=== PATIENT | female | born 1980 | race Caucasian/White ===

== ENCOUNTER 2020-05-04 21:40 | Emergency (ER) | payer SELFPAY ==
[2020-05-05 00:45] LABS: APPEARANCE,URINE SLIGHTLY-CLOUDY; BILIRUBIN,URINE NEGATIVE (NEGATIVE); COLOR,URINE YELLOW; GLUCOSE, URINE NEGATIVE (NEGATIVE); KETONES,URINE NEGATIVE (NEGATIVE); LEUKOCYTE ESTERASE,URINE NEGATIVE (NEGATIVE); NITRITE,URINE NEGATIVE (NEGATIVE); PROTEIN,URINE NEGATIVE (NEGATIVE); UROBILINOGEN,URINE NEGATIVE mg/dL (<2.0)
[2020-05-05 00:47] LABS: ABSOLUTE EOSINOPHILS # (AUTO) 0.2 10^3/uL (0.0-0.6); ABSOLUTE LYMPHOCYTES (AUTO) 2.7 10^3/uL (0.5-4.7); ABSOLUTE MONOCYTES (AUTO) 0.9 10^3/uL (0.1-1.4); BASOPHILS % (AUTO) 0.4 % (0-2); EOSINOPHILS % (AUTO) 1.6 % (0-6); HEMOGLOBIN 13.9 g/dL (12.0-15.5); LYMPHOCYTES % (AUTO) 24.6 % (13-45); MEAN CORPUSCULAR HEMOGLOBIN 27.2 pg (27.0-33.4); MEAN CORPUSCULAR HGB CONC 33.9 g/dL (32.0-36.0); MEAN CORPUSCULAR VOLUME 80 fl (80-97); MONOCYTES % (AUTO) 8.2 % (3-13); PLATELET COUNT 327 10^3/uL (150-450); RED CELL DISTRIBUTION WIDTH 14.6 % (11.5-14.0); SEGMENTED NEUTROPHILS % (AUTO) 65.2 % (42-78); TOTAL CELLS COUNTED % (AUTO) 100 %; WHITE BLOOD COUNT 10.8 10^3/uL (4.0-10.5)
[2020-05-05 01:02] LABS: URINE AMPHETAMINES SCREEN NEGATIVE; URINE BARBITURATES SCREEN NEGATIVE; URINE BENZODIAZEPINES SCREEN NEGATIVE; URINE COCAINE SCREEN NEGATIVE; URINE MARIJUANA (THC) SCREEN NEGATIVE; URINE METHADONE SCREEN NEGATIVE; URINE PHENCYCLIDINE SCREEN NEGATIVE
[2020-05-05 01:05] LABS: ACETAMINOPHEN < 10 ug/mL (10-30); ALBUMIN 4.3 g/dL (3.5-5.0); ALCOHOL < 10 mg/dL (NONE DETECTED); ALKALINE PHOSPHATASE 108 U/L (38-126); ANION GAP 7 (5-19); ASPARTATE AMINO TRANSFERASE 39 U/L (14-36); BILIRUBIN,DIRECT 0.3 mg/dL (0.0-0.4); BILIRUBIN,TOTAL 0.6 mg/dL (0.2-1.3); BLOOD UREA NITROGEN 17 mg/dL (7-20); CALCIUM 9.7 mg/dL (8.4-10.2); CARBON DIOXIDE 28 mmol/L (22-30); CHLORIDE 104 mmol/L (98-107); GLUCOSE 120 mg/dL (75-110); POTASSIUM 3.7 mmol/L (3.6-5.0); SALICYLATE < 1.0 mg/dL (2.0-20.0); TOTAL PROTEIN 7.6 g/dL (6.3-8.2)
[2020-05-05] MEDS: HALOPERIDOL 2 MG TABLET PO SCH ×4 (01:13→18:57)
--- NOTE | 2020-05-05 04:38 | ER Document Report ---
ED General - General TRAVEL OUTSIDE OF THE [place] IN LAST 30 DAYS: No <TONIA GOMEZOMARA Magaly - Last Filed: 05/06/20 06:30> <MIAH DE LA CRUZ - Last Filed: 05/06/20 17:34> <SHAYKADEEM Riddhi - Last Filed: 05/06/20 18:15> - General Chief Complaint: Psych Problem Stated Complaint: IVC Primary Care Provider: [facility] [Outside] - 05/07/20 8:00 am (Walk ins are -Fridays 8:00A-12:00PM/Noon. Can walk in first thing tomorrow (05/07/2020) morning.) [facility] [Outside] - Follow up as needed [facility] [Outside] - Follow up as needed Notes: 39-year-old female no significant past medical history presents with homicidal ideation. Patient was here accompanying her daughter who has been having psychiatric issues for the past 3 years and she told RENETTA Mahajan repeatedly that she wanted to kill her daughter. Patient during my conversation says "I do not need to be here, I am not the one who is going to hurt myself" her many other children"but does not deny homicidal ideation regarding her daughter who is at the center of this complaint. Patient says she had her mother warehouse picker daughter in order to avoid hurting her. Patient denies any suicidal ideation, personal psych history, medical complaints (GOMEZMANUEL Magaly) - Related Data Allergies/Adverse Reactions: No Known Allergies Allergy (Unverified 11/10/10 05:20) Past Medical History - General Information source: Patient, Emergency Med Personnel, [facility] Records - Social History Smoking Status: Unknown if Ever Smoked Family History: Reviewed & Not Pertinent - Past Medical History Cardiac Medical History: Pulmonary Medical History: Neurological Medical History: GI Medical History: Musculoskeletal Medical History: Infectious Medical History: Past Surgical History: - Immunizations Immunizations up to date: Yes Hx Diphtheria, Pertussis, Tetanus Vaccination: Yes <MANUEL GOMEZ - Last Filed: 05/06/20 06:30> Physical Exam <MANUEL GOMEZ - Last Filed: 05/06/20 06:30> - Vital signs Vitals: Temp Pulse Resp BP Pulse Ox 98.5 F 100 16 144/103 H 99 05/04/20 22:34 05/04/20 22:34 05/04/20 22:34 05/04/20 22:34 05/04/20 22:34 - Notes Notes: PHYSICAL EXAMINATION: GENERAL: Well-appearing, well-nourished and in no acute distress. HEAD: Atraumatic, normocephalic. EYES: Pupils equal round and appropriate constriction, sclera anicteric, conjunctiva are normal. ENT: nares patent, moist mucous membranes. NECK: Normal range of motion, supple without lymphadenopathy LUNGS: Normal respiratory rate and effort, speaking in full sentences HEART: Regular rate, no JVD, no lower extremity edema EXTREMITIES: Normal range of motion, no pitting or edema. No cyanosis. NEUROLOGICAL: Awake, alert, conversing appropriately, moves all extremities spontaneously. PSYCH: Normal speech, poor insight into reasons why she has been placed on IVC, normal affect, no SI SKIN: Warm, Dry, normal turgor, no rashes or lesions noted. (MANUEL GMOEZ) Course - Laboratory Result Diagrams: 05/04/20 22:57 05/04/20 22:57 <MANUEL GOMEZ - Last Filed: 05/06/20 06:30> - Laboratory Result Diagrams: 05/04/20 22:57 05/04/20 22:57 <MIAH DE LA CRUZ - Last Filed: 05/06/20 17:34> - Laboratory Result Diagrams: 05/04/20 22:57 05/04/20 22:57 <KADEEM DAY - Last Filed: 05/06/20 18:15> - Re-evaluation Re-evalutation: 05/05/20 04:42 Patient repeatedly threatening to kill her teenage daughter who has been having psychiatric difficulties. Patient during my evaluation continued to expressing thoughts. Patient has no medical complaints and no other psychiatric complaints. Patient placed on IVC by Mohinder from psych and toxicology was provider who patient initially communicated threats to. Patient on ICU awaiting psych eval during daytime. [facility] to turn over CPS notification 2 days PCC. Will turn over patient to Fatou Mahajan pending psych eval. (MANUEL GOMEZ) 05/06/20 18:14 Patient has been evaluated by Department of Dental Tech and a plan is in place for the patient and her children at this time. Patient is in full agreement with this plan she is eating in the room she is in no distress. She denies homicidal or suicidal ideation at this time. Psychiatric team is in agreement for discharge for the patient with plan in place. (KADEEM DAY) - Vital Signs Vital signs: Temp Pulse Resp BP Pulse Ox 98.3 F 86 18 135/83 H 97 05/06/20 15:49 05/06/20 15:49 05/06/20 15:49 05/06/20 15:49 05/06/20 15:49 - Laboratory Laboratory results interpreted by me: 05/04/20 05/04/20 22:57 22:57 WBC 10.8 H RDW 14.6 H Glucose 120 H AST 39 H ALT 42 H Salicylates < 1.0 L Acetaminophen < 10 L - EKG Interpretation by Me Additional EKG results interpreted by me: 05/05/20 04:44 Heart rate 80, sinus rhythm, erroneously read as ventricular paced rhythm, no significant ST elevations or depressions, LVH (MANUEL GOMEZ) Discharge <MANUEL GOMEZ - Last Filed: 05/06/20 06:30> <MIAH DE LA CRUZ - Last Filed: 05/06/20 17:34> <KADEEM DAY - Last Filed: 05/06/20 18:15> - Discharge Clinical Impression: Homicidal ideation, Labile mood Condition: Stable Disposition: HOME, SELF-CARE Additional Instructions: You have been evaluated by both medical and behavioral health teams for pascale icidal ideation and mood lability. You have been deemed appropriate for discharge. While in the emergency department you received the following services: Medical screening and assessment, nursing services, dietary services, pharmacological services, one-on-one counseling and/or psychotherapy, enviro nyental services, and continuous observation by a patient registered safety engineer. You are recommended to follow up with an outpatient mental health provider of your choice for at least therapy. DEPRESSION: Your evaluation reveals that you have mental depression. While symptoms may be vague, they often include disturbance of sleep, fatigue, loss of appetite, and general loss of interest in life. While depression may be a side effect of drugs, or a reaction to a major change in your life, many cases have no known cause. If depression is acute, and related to a major loss in your life, you can expect it to clear completely with time. If you have been depressed a long time, are prone to repeated bouts of depression or low mood, or have been thinking of suicide, get help. Depression can be treated with anti-depressant medication and counselling. Long-term depression will often take a few weeks to clear, even with appropriate medication. Follow-up care is important. HOMICIDAL IDEATION: Homicidal ideation is a common medical term for thoughts about homicide, whi ch may be as detailed as a formulated plan, without the homicidal act itself. Although most people who undergo homicidal ideation do not commit homicide, some go on to make homicide attempts. The range of homicidal ideation varies greatly from fleeting to detailed planning, role playing, and unsuccessful attempts. While thoughts about homicide can be common, most people do not carry out serious actions to commit homicide. Based upon your evaluation and discussion with you, we do not believe you are currently at risk to act upon your thoughts of homicide. You have agreed to return to the Emergency Department, at any time, if you feel inclined to act upon your homicidal thoughts. FOLLOW-UP CARE: You are recommended to initiate outpatient mental health services from a local provider such as [facility] (walk ins 8:00AM- 12:00PM/Noon) and can do first thing tomorrow (05/07/2020) morning. You have also been provided both local mobile crisis numbers. Department of Dental Tech also involved and part of plan of care. [facility] are [facility] and recommendations. If you experience worsening or a significant change in your symptoms notify your physician immediately, utilize mobile crisis or return to the Emergency Department at any time for re- evaluation. Referrals: [facility] [Outside] - Follow up as needed [facility] [Outside] - Follow up as needed [facility] [Outside] - 05/07/20 8:00 am (Walk ins are 8:00A-12:00PM/Noon. Can walk in first thing tomorrow (05/07/2020) morning.)
[2020-05-05] MEDS: BENZTROPINE MESYLATE 1 MG TABLET PO SCH (08:06)
--- NOTE | 2020-05-05 15:11 | ER Document Report ---
Doctor's Note Notes: 05/05/20 15:10 Patient is resting in the room in no distress, has been ambulatory. Awaiting psychiatric evaluation today for further recommendations
--- NOTE | 2020-05-05 19:08 | EKG REPORT ---
SEVERITY:- ABNORMAL ECG - VENTRICULAR-PACED COMPLEXES LEFT VENTRICULAR HYPERTROPHY : Confirmed by: Batsheva Khan 05-May-2020 19:08:11
--- NOTE | 2020-05-05 23:27 | PSYCHOLOGICAL NOTE ---
Psych Note - Psych Note Date seen by psych provider: 05/04/20 Time seen by psych provider: 20:00 Psych Note: Reason for Consult: Homicidal comments While at [facility] ED for an other matter, patient was noted to make homicidal comments numerous times to both mental health clinician and medical provider. Patient stated she got into an argument with her teenage daughter; it was so bad I called my mother and told her to come roll picker this child now before I kill hercause I will not be going to long term for no one. She reported the teenager was unable to return to my homefor my own mental healthI cant live like thisI shouldn'tt have to live like this with her snip, snip, sniping at magdalenoe has mental health issuesfor my own mental health and the safety of myself and children she cant return to my homeI cant trust myself in not wanting to kill her. Patient was noted to repeatedly make comments about the issue being the teenagers that she does not have a problem ( I dont have any problems, it is her, she has the issues, I am fine without her), the teenager can not return to the home for the mental health of the patient, that she could not continue living like this and that she should have to live with the teenagers behaviors. Patients mood is slightly labile moving swiftly from calm to angry to tearful to overwhelmed. Patient continued to demonstrate extreme stress, inability to problem solve or process recommendations for professionals ie going from provider to provider in an attempt to obtain unneeded treatment for her teenager, inability to identify the cause and effect of her own actions, and inability to discuss future plans for her teenager such as the teenager returning home even if the treatment she wanted was appropriate. At this time, there is significant concern for the patients mental health state and is in need of an evaluation. 24 hour petition for evaluation has been signed and placed in patients chart; evaluation is ongoing. Dr. Garcia was consulted on the care and management of this patient; attending physician is in agreement with recommendations and disposition.
[2020-05-06] MEDS ORDERED: DIPHENHYDRAMINE HCL 50 MG CAPSULE PO ONE (00:09)
[2020-05-06] MEDS: HALOPERIDOL 2 MG TABLET PO SCH ×4 (00:16→17:56)
[2020-05-06] MEDS: BENZTROPINE MESYLATE 1 MG TABLET PO SCH (08:52)
--- NOTE | 2020-05-06 09:58 | PSYCHOLOGICAL NOTE ---
Psych Note - Psych Note Date seen by psych provider: 05/05/20 Time seen by psych provider: 11:20 - Evaluation with patient from [id number]. [facility] DSS/CPS called all morning, took first call at 1316, they came to see patient in ED and then spoke to this clinician after at 1509, then went to the family home to interview the children, and back to discuss safety plan with patient at 1742. Psych Note: Patient is a 39 year old female who presented to the Emergency Department last evening initially for her 17 year old daughter who came in on IVC paperwork. Reportedly professionals had already informed mother patient did not meet Involuntary Commitment criteria but she still pursed it. During that assessment patient said in front of both the medical and behavioral health providers her daughter could not return home or else she would kill her. She made such st atements several times and in the presence of the child. Patient became emotionally labile. She was subsequently put on a 24 Hour Petition for Evaluation. Patient reported "I'm just sleepy" when asked how she was doing. When confronted about homicidal statements towards 17 year old daughter made several times in front of both medical and behavioral health providers patient would not admit and eventually denied she ever made such statements. She identified "I had been trying to get my daughter additional care, she has mental health issues, is on medication, Sunday the school called me and she needs an evaluation before returning back, the counselor that works with my daughter told me to go to the [facility] but once there they said I couldn't Involuntary Commit and gave me a number, then we went to [facility] where they did an Involuntary Commitment and sent my daughter here to the Emergency Department for inpatient placement." She further stated "I had been going all day, since 0900, I was frustrated and exhausted with all the hurdles I felt like I had to go through to get my daughter help." She stated "it was just my passion and a sense of urgency." Patient acknowledged an argument happened last week where she called her mother saying "come get the 17 year old, I am so angry I am going to kill her." Patient further reported "it was a comment which expressed the amount of anger I had, I wasn't meaning it." She denied ever doing anything to hurt any of her children. She stated "this has all been taken to the extreme and I told that lady I don't agree with this." She denied suicidal and homicidal ideation. Patient denied previous mental health hospitalizations. She continued to deny making any homicidal statements towards her daughter in front of medical and behavioral health providers. She noted this is the "second go around for Intensive In Home, I have been dealing with this the past 3 years." Patient was alert and oriented to self, person, place, time and situation. Mood was depressed with flat affect. She denied current suicidal and homicidal ideation. Patient did not appear to be responding to internal stimuli as evidenced by fair eye contact and answering questions appropriately when addressed. Thought processes were linear and organized. Conversational speech was within normal limits for rate, tone and prosody. Intellectual abilities are estimated to be average. Insight, judgment and impulse control were fair to poor as evidenced by being calm and cooperative, however not taking responsibility for statements she made in front of two different providers and not understanding the detriment those statements had on her 17 year old daughter since she was also present. At 1316 spoke to Sasha ([phone] cell) from [facility] of [employer] Child Protective Services when she called in. She had been calling all morning. She stated she would be to the hospital within the hour to interview patient. After she interviewed patient she left to go interview the children at home. Then she came back to discuss safety plan with patient. At 1742 she identified there was a plan in place, she would be doing a face to face with patient and family tomorrow, and recommendation for patient to seek outpatient mental health services for herself. Clinical Presentation: Homicidal Ideation towards 17 year old daughter Emotional lability Poor insight, judgment and impulse control given lack of understanding regarding the impact what she said in front of 17 year old daughter could have on her daughter Impression/Plan: Recommendation for FULL IVC (patient was on a 24 Hour Petition for Evaluation). There are concerns patient is minimizing the situation, she has not taken responsibility for making homicidal statements numerous times in front of two different providers, and she does not seem to understand the impact her statements could have on her 17 year old daughter who had psychological testing completed and is IDD. Also she chose to pursue getting an Involuntary Commitment for her daughter even after helping professionals told her it was not appropr iate and her daughter did not meet criteria. [facility] has continued to coordinate with [facility] CPS regarding the concerns. Consulted with Dr. Garcia regarding the management and care of patient. ED Physician in agreement with recommendations.
[2020-05-06] MEDS ORDERED: BENZTROPINE MESYLATE 1 MG TABLET PO SCH (10:00)
--- NOTE | 2020-05-06 13:00 | ER Document Report ---
Doctor's Note Notes: 05/06/20 13:00 Patient is cooperative in the room, no acute distress, voices no thoughts of harming herself or harming others at this time to me although she states that she still has issues with her teenage daughter. Awaiting further psychiatric recommendations
[2020-05-06 18:28] VITALS: BP 132/93
--- NOTE | 2020-05-07 18:04 | PSYCHOLOGICAL NOTE ---
Psych Note - Psych Note Date seen by psych provider: 05/06/20 Time seen by psych provider: 12:07 - Re evaluation with patient from [id number]. Coordination with DSS at 1402, 1716 and then in person just before discharge. Psych Note: Patient is a 39 year old female in the Emergency Department on FULL Involuntary Commitment for homicidal ideation (both medical and behavioral health providers heard patient say multiple times that 17 year old daughter couldn't come home or she would kill her) towards 17 year old daughter that was Involuntarily Committed and mood lability. She was held again overnight for further coordination with Department of [facility] Child Protective Services. Patient reported she was doing "okay, ready to get home to the other children, her youngest son missed class this morning because grandma didn't wake up in time, and her youngest has to work this evening, I want to get back to life." She noted her 17 year old daughter would be staying with grandmother. She continued to be adamant that what she said "was taken out of context and she was referencing an argument from a week ago." Psychoeducated her on how her reaction when she brought 17 year old daughter to the emergency department could affect that 17 year old daughter, as well as what having a developmental delay (per psychological testing on patient's 17 year old daughter) means in terms of her daughter's ability to comprehend information/express self. She was more than willing to allow for review and copies of the safety plan her and DSS came up with. A copy was made. Patient was alert and oriented to self, person, place, time and situation. Mood was euthymic with congruent affect. She denied current suicidal and homicidal ideation and has been. Patient did not appear to be responding to internal stimuli as evidenced by fair eye contact, answering questions appropriately when addressed and carrying on dialogue conversation. Thought processes were linear and organized. Conversational speech was within normal limits for rate, tone and prosody. Intellectual abilities are estimated to be average. Insight, judgment and impulse control were fair as evidenced by allowing review and copies of safety plan from DSS. Coordinated with DSS CPS worker Sasha ([phone] cell) 3 different times. After meeting with her price accuracy supervisor both came to go over additional information with patient. Overheard DSS tell patient 17 year old daughter would be staying with grandmother and patient could only have supervised visits by grandmother. They also noted patient following through with outpatient mental health services. Clinical Presentation: Homicidal Ideation towards 17 year old daughter Emotional lability Poor insight, judgment and impulse control given lack of understanding regarding the impact what she said in front of 17 year old daughter could have on her daughter Impression/Plan: Patient is cleared from acute psychiatric services. Recommendation to RESCIND FULL Involuntary Commitment. She has continued to deny suicidal and homicidal ideation, and no observed psychosis. [facility] CPS is involved with safety plan which includes 17 year old daughter staying with grandmother a nd patient only able to have supervised visits by grandmother. Provided patient with the outpatient mental health resource sheet which highlighted both local mobile crisis numbers, as well as documented walk in to [facility] as early as first things tomorrow morning in order to initiate services. [facility] CPS present when this information was shared and recommended to patient. Consulted with Dr. Garcia regarding the management and care of patient. ED Physician in agreement with recommendations.
== END 2020-05-06 18:28 | disposition home or self-care (01) ==
LOC: ER 21:40
DX: Z04.6 Encounter for general psychiatric examination, requested by authority (principal); R45.850 Homicidal ideations; R45.86 Emotional lability
CPT/HCPCS: 93005; 99285; 80307 ×4; 84703; 85025; 80053; 81001; 93010; J3490 ×2